=== PATIENT | female | born 1950 ===

== ENCOUNTER 2018-01-08 16:13 | Emergency (ER) | payer MEDICARE, OTHER ==
[~2018-01-08] VITALS: Ht 157.5 cm; Wt 81.8 kg
[~2018-01-08 16:13] MED LIST: BUME1TAB17 PO; CALC25 PO; SEVE800PW PO
[2018-01-08 16:23] LABS: GLUCOSE,POINT OF CARE 228 MG/DL (70-110)
[2018-01-08 17:53] LABS: BASOPHILS % (AUTO) 1.1 % (0.0-2.0); EOSINOPHILS % (AUTO) 0.7 % (1.0-6.0); HEMATOCRIT 40.9 % (36-46); HEMOGLOBIN 13.5 g/dL (12.0-16.0); LYMPHOCYTES # (AUTO) 1.6 K/uL (1.0-4.8); LYMPHOCYTES % (AUTO) 21.5 % (22.0-44.0); MEAN CORPUSCULAR HEMOGLOBIN 30.7 pg (26.0-34.0); MEAN CORPUSCULAR VOLUME 93 fL (80-100); MONOCYTES # (AUTO) 0.5 K/uL (0.1-1.0); MONOCYTES % (AUTO) 6.9 % (2.0-9.0); NEUTROPHILS # (AUTO) 5.2 K/uL (1.8-7.7); NEUTROPHILS % (AUTO) 69.8 % (40.0-70.0); PLATELET COUNT (AUTO) 208 K/uL (150-450); RED BLOOD CELL COUNT(AUTO) 4.39 MIL/uL (4.00-5.20); RED CELL DISTRIBUTION WIDTH 16.4 % (11.5-14.5)
[2018-01-08 17:57] LABS: CALCIUM, TOTAL 9.1 mg/dL (8.8-10.5); CREATININE 4.21 mg/dL (0.60-1.30)
[2018-01-08 18:23] LABS: ALBUMIN 2.7 g/dL (3.4-5.0); BILIRUBIN,TOTAL 1.2 mg/dL (0.1-1.0); CKMB RELATIVE INDEX 2.4 % (0.0-4.0); CREATINE KINASE MB 13.2 ng/mL (0-5); TOTAL PROTEIN, SERUM 6.8 g/dL (6.4-8.2)
[2018-01-08] MEDS ORDERED: BUMETANIDE 0.25 MG/ML 4 ML VIAL IVP ONE (19:00)
[2018-01-08 19:37] VITALS: BP 122/67
== END 2018-01-08 19:38 | disposition home or self-care (01) ==
LOC: EMS 16:14
DX: I50.9 Heart failure, unspecified (principal); R60.9 Edema, unspecified; E11.9 Type 2 diabetes mellitus without complications; Z79.899 Other long term (current) drug therapy
CPT/HCPCS: 36415; 71045; 80053; 82550; 82553; 82962; 83880; 84484; 85025; 93005; 96374; 99285; J3490